=== PATIENT | female | born 1950 | race Caucasian/White ===

== ENCOUNTER → 2016-10-24 | Outpatient (REF) | payer MEDICARE, OTHER ==
[~2016-10-24] MED LIST: ALEN35TA PO; ATIV2TAB PO; BUTACAP78 PO; CENTTAB47 PO; CETI10TA PO; CETI1TAB PO; FISH120012 PO; FISH5CAP PO; GLUC15002 PO; LEVO112T25 PO; LORA2TAB9 PO; MOME50SP; MONT10TA2 PO; OMEP20CA3 PO; SIMV20TA2 PO; ZYRT10CA PO; [UNRECOGNIZED DRUG - CODE] PO
[2016-10-24 12:27] LABS: ALBUMIN/GLOBULIN RATIO 1.48 (1.00-1.93); ALKALINE PHOSPHATASE 43 U/L (45-117); ALT/SGPT 35 U/L (12-78); ANION GAP 6 MEQ/L (8-16); AST/SGOT 32 U/L (15-37); BILIRUBIN,TOTAL 0.3 MG/DL (0.2-1.0); BLOOD UREA NITROGEN 23 MG/DL (7-18); CALCIUM LEVEL 8.8 MG/DL (8.8-10.2); CARBON DIOXIDE LEVEL 27 MEQ/L (21-32); CHLORIDE LEVEL 109 MEQ/L (98-107); CHOLESTEROL LEVEL 196 MG/DL (<200); CREATININE FOR GFR 0.97 MG/DL (0.55-1.02); FREE T4 1.09 NG/DL (0.76-1.46); GLOMERULAR FILTRATION RATE > 60.0 (>45); GLUCOSE, FASTING 93 MG/DL (80-110); POTASSIUM SERUM 4.4 MEQ/L (3.5-5.1); SODIUM LEVEL 142 MEQ/L (136-145); TOTAL PROTEIN 6.7 GM/DL (6.4-8.2); TRIGLYCERIDES LEVEL 47 MG/DL (<150)
[2016-10-24 14:21] LABS: MEAN CORPUSCULAR HEMOGLOBIN 30.6 pg (27.0-33.0); MEAN CORPUSCULAR HGB CONC 33.1 g/dl (32.0-36.5); MEAN CORPUSCULAR VOLUME 92.7 fl (80.0-96.0); PLATELET COUNT, AUTOMATED 152 k/mm3 (150-450); RED CELL DISTRIBUTION WIDTH 12.1 % (11.5-14.5); WHITE BLOOD COUNT 3.1 K/mm3 (4.0-10.0)
[2016-10-24 15:36] LABS: BASOPHILS 1 % (0-4); EOSINOPHILS 4 % (0-5)
== END ==
LOC: M LABDRAW1 11:40
PROVIDERS: ATTEND Emergency Medicine
DX: E78.2 Mixed hyperlipidemia (principal); E03.9 Hypothyroidism, unspecified; R53.83 Other fatigue

== ENCOUNTER → 2016-12-26 | Outpatient (REF) | payer MEDICARE, OTHER ==
[2016-12-26 19:05] LABS: URIC ACID 3.6 MG/DL (2.6-6.0)
[2016-12-29 00:06] LABS: Lyme Disease IgG/IgM Antibodie <0.91 ISR (0.00-0.90); Lyme Disease IgM Ab Quantitati <0.80 index (0.00-0.79)
== END ==
LOC: M LABDRAW1 17:28
PROVIDERS: ATTEND Emergency Medicine
DX: M15.0 Primary generalized (osteo)arthritis (principal)

== ENCOUNTER → 2017-07-18 | Outpatient (CLI) | payer MEDICARE, OTHER, BC | LOC: M WUC 15:37 | DX: M25.551 Pain in right hip (principal) | CPT/HCPCS: 73502 ==

== ENCOUNTER → 2017-10-08 | Outpatient (CLI) | payer MEDICARE, BC, OTHER | LOC: M EKG 14:10 | DX: J47.9 Bronchiectasis, uncomplicated (principal) | CPT/HCPCS: 93005 ==

== ENCOUNTER → 2017-10-17 | Outpatient (REF) | payer MEDICARE, OTHER | LOC: M LABDRWAD 15:26 | DX: J47.9 Bronchiectasis, uncomplicated (principal) | CPT/HCPCS: 87116 ==

== ENCOUNTER → 2018-08-26 | Outpatient (REF) | payer MEDICARE, OTHER ==
[~2018-08-26] MED LIST changes: -ALEN35TA PO; +ALEN35TA37 PO
[2018-08-26 12:04] LABS: BASO % 1.2 % (0.0-1.0); EOS # 0.1 10^3/uL (0.0-0.50); EOS % 3.2 % (0.0-3.0); HEMATOCRIT 35.5 % (36.0-47.0); HEMOGLOBIN 11.6 g/dl (12.0-15.5); LYMPH # 1.4 10^3/uL (1.5-4.5); LYMPH % 41.4 % (24.0-44.0); MEAN CORPUSCULAR HEMOGLOBIN 30.3 pg (27.0-33.0); MEAN CORPUSCULAR HGB CONC 32.7 g/dl (32.0-36.5); MEAN CORPUSCULAR VOLUME 92.7 fl (80.0-96.0); MONO # 0.3 10^3/uL (0.0-0.8); MONO % 9.3 % (0.0-5.0); NEUTROPHILS # 1.6 10^3/uL (1.8-7.7); NEUTROPHILS % 44.9 % (36.0-66.0); PLATELET COUNT, AUTOMATED 176 10^3/uL (150-450); RED BLOOD COUNT 3.83 10^6/uL (4.00-5.40); WHITE BLOOD COUNT 3.5 10^3/uL (4.0-10.0)
[2018-08-26 12:49] LABS: BILIRUBIN,TOTAL 0.3 MG/DL (0.2-1.0); CALCIUM LEVEL 9.3 MG/DL (8.8-10.2); CHOLESTEROL RISK RATIO 2.902 (<5); CREATININE FOR GFR 1.09 MG/DL (0.55-1.30); FREE T4 1.17 NG/DL (0.76-1.46); GLOMERULAR FILTRATION RATE 52.8 (>39); POTASSIUM SERUM 4.4 MEQ/L (3.5-5.1); THYROID STIMULATING HORMONE 2.21 uIU/ML (0.358-3.740); TOTAL PROTEIN 6.8 GM/DL (6.4-8.2)
== END ==
LOC: M LABDRAW1 09:22
PROVIDERS: ATTEND Physician Assistant
DX: E78.2 Mixed hyperlipidemia (principal); E03.9 Hypothyroidism, unspecified; G43.909 Migraine, unspecified, not intractable, without status migrainosus

== ENCOUNTER → 2018-12-12 | Outpatient (REF) | payer MEDICARE, OTHER | LOC: M LAB REF 17:03 | PROVIDERS: ATTEND Physician Assistant | DX: N32.81 Overactive bladder (principal) ==

== ENCOUNTER → 2019-03-05 | Outpatient (REF) | payer MEDICARE, OTHER ==
[~2019-03-05] MED LIST changes: -OMEP20CA3 PO; +OMEP20CA4 PO
[2019-03-05 14:31] LABS: BASO % 1.3 % (0.0-1.0); EOS # 0.1 10^3/uL (0.0-0.50); EOS % 4.6 % (0.0-3.0); HEMATOCRIT 34.5 % (36.0-47.0); HEMOGLOBIN 11.2 g/dl (12.0-15.5); LYMPH # 1.1 10^3/uL (1.5-4.5); MEAN CORPUSCULAR HEMOGLOBIN 30.4 pg (27.0-33.0); MEAN CORPUSCULAR HGB CONC 32.5 g/dl (32.0-36.5); MEAN CORPUSCULAR VOLUME 93.5 fl (80.0-96.0); MONO # 0.4 10^3/uL (0.0-0.8); MONO % 12.1 % (0.0-5.0); NEUTROPHILS # 1.4 10^3/uL (1.8-7.7); PLATELET COUNT, AUTOMATED 166 10^3/uL (150-450); RED BLOOD COUNT 3.69 10^6/uL (4.00-5.40); WHITE BLOOD COUNT 3.1 10^3/uL (4.0-10.0)
[2019-03-05 15:10] LABS: ALBUMIN 4.2 GM/DL (3.2-5.2); BILIRUBIN,TOTAL 0.4 MG/DL (0.2-1.0); CALCIUM LEVEL 9.4 MG/DL (8.8-10.2); CHOLESTEROL RISK RATIO 2.41 (<5); CREATININE FOR GFR 1.01 MG/DL (0.55-1.30); FREE T4 1.2 NG/DL (0.76-1.46); GLOMERULAR FILTRATION RATE 57.5 (>39); POTASSIUM SERUM 4.3 MEQ/L (3.5-5.1); THYROID STIMULATING HORMONE 1.45 uIU/ML (0.358-3.740); TOTAL 25(OH) VITAMIN D 58.5 NG/ML (30.0-100.0); TOTAL PROTEIN 6.8 GM/DL (6.4-8.2)
== END ==
LOC: M LABDRAW1 08:36
PROVIDERS: ATTEND Physician Assistant
DX: Z13.29 Encounter for screening for other suspected endocrine disorder (principal); E78.00 Pure hypercholesterolemia, unspecified

== ENCOUNTER → 2019-06-17 | Outpatient (REF) | payer MEDICARE, OTHER ==
[~2019-06-17] MED LIST changes: -ALEN35TA37 PO; +ALEN35TA6 PO; -SIMV20TA2 PO; +SIMV20TA22 PO
[2019-06-17 11:46] LABS: BASO % 0.6 % (0.0-1.0); EOS # 0.1 10^3/uL (0.0-0.5); HEMATOCRIT 35.1 % (36.0-47.0); HEMOGLOBIN 11.5 g/dl (12.0-15.5); LYMPH # 1.2 10^3/uL (1.5-5.0); LYMPH % 34.6 % (24.0-44.0); MEAN CORPUSCULAR HEMOGLOBIN 30.4 pg (27.0-33.0); MEAN CORPUSCULAR HGB CONC 32.8 g/dl (32.0-36.5); MEAN CORPUSCULAR VOLUME 92.9 fl (80.0-96.0); MONO # 0.4 10^3/uL (0.0-0.8); MONO % 9.9 % (0.0-5.0); NEUTROPHILS # 1.9 10^3/uL (1.5-8.5); NEUTROPHILS % 52.9 % (36.0-66.0); PLATELET COUNT, AUTOMATED 176 10^3/uL (150-450); RED BLOOD COUNT 3.78 10^6/uL (4.00-5.40); WHITE BLOOD COUNT 3.6 10^3/uL (4.0-10.0)
[2019-06-17 11:58] LABS: ALBUMIN 3.9 GM/DL (3.2-5.2); BILIRUBIN,TOTAL 0.3 MG/DL (0.2-1.0); CALCIUM LEVEL 8.7 MG/DL (8.8-10.2); CREATININE FOR GFR 1.06 MG/DL (0.55-1.30); GLOMERULAR FILTRATION RATE 54.4 (>39); POTASSIUM SERUM 4.3 MEQ/L (3.5-5.1)
[2019-06-17 12:02] LABS: FOLATE 21.8 NG/ML
[2019-06-17 13:30] LABS: HEMOGLOBIN A1c 5.7 %
== END ==
LOC: M LABDRAW1 11:02
PROVIDERS: ATTEND Physician Assistant
DX: D64.9 Anemia, unspecified (principal); R73.03 Prediabetes

== ENCOUNTER 2020-04-08 08:13 | Emergency (ER) | payer MEDICARE, BC, OTHER ==
[~2020-04-08] VITALS: Ht 162.6 cm; Wt 60.0 kg
[~2020-04-08 08:13] MED LIST changes: +ALEN35TA54 PO; -ALEN35TA6 PO; +LORA2TAB14 PO; -LORA2TAB9 PO; -MONT10TA2 PO; +MONT10TA4 PO; +OMEP1CAP73 PO; -OMEP20CA4 PO
[2020-04-08] MEDS ORDERED: PANT40TA29 PO (08:25)
[2020-04-08] MEDS ORDERED: LEVO112T2 PO (08:25)
[2020-04-08] MEDS ORDERED: LORA2TAB14 PO (08:25)
[2020-04-08] MEDS ORDERED: NS 1,000 ML IV ONE (08:45)
[2020-04-08] MEDS ORDERED: ISOVUE-370 76% 100ML VIAL As Ordered ONE (09:06)
[2020-04-08 09:42] LABS: ALBUMIN 4.4 GM/DL (3.2-5.2); ALT/SGPT 32 U/L (12-78); BILIRUBIN,DIRECT < 0.1 MG/DL (0.0-0.2); BILIRUBIN,TOTAL 0.4 MG/DL (0.2-1.0); LIPASE 130 U/L (73-393); TOTAL PROTEIN 7.4 GM/DL (6.4-8.2)
--- NOTE | 2020-04-08 09:51 | REPVR ---
PROCEDURE INFORMATION: Exam: CT Abdomen And Pelvis With Contrast Exam date and time: 04/08/2020 8:32 AM Age: 70 years old Clinical indication: Other: Diarrhea; Abdominal pain; Additional info: Abdominal pain/diarrhea TECHNIQUE: Imaging protocol: Computed tomography of the abdomen and pelvis with intravenous contrast. Radiation optimization: All CT scans at this facility use at least one of these dose optimization techniques: automated exposure control; mA and/or kV adjustment per patient size (includes targeted exams where dose is matched to clinical indication); or iterative reconstruction. Contrast material: ISOVUE 370; Contrast volume: 100 ml; Contrast route: INTRAVENOUS (IV); COMPARISON: None FINDINGS: Lungs: Interstitial prominence, mild airspace disease, and bronchiectasis. Liver: No focal hepatic mass. Gallbladder and bile ducts: No cholelithiasis or biliary ductal dilatation. Pancreas: Borderline pancreatic ductal dilatation, without focal mass. Spleen: No splenomegaly. Adrenals: Unremarkable adrenals. Kidneys and ureters: Normal renal morphology. No hydronephrosis. Stomach and bowel: Questionable wall thickening in the nondistended stomach. Mild small bowel dilatation without a transition zone. Colonic wall thickening, in a pattern of colitis. Appendix: Appendix not visualized. Intraperitoneal space: No significant free fluid. Vasculature: Vascular calcification. Normal caliber of the abdominal aorta. Lymph nodes: No pathologically enlarged lymph nodes. Bladder: Normal bladder morphology. Reproductive: Status post hysterectomy. Bones/joints: Transitional vertebra at the lumbosacral junction. Schmorl's nodes. Mild degenerative change. IMPRESSION: 1. Colonic wall thickening, in a pattern of colitis. 2. Additional findings as described above. Electronically signed by: Yogi Toro On 04/08/2020 09:50:58 AM
[2020-04-08 09:55] LABS: BASO % 0.1 % (0.0-1.0); HEMOGLOBIN 9.8 g/dl (12.0-15.5); LYMPH # 0.6 10^3/uL (1.5-5.0); LYMPH % 6.3 % (24.0-44.0); MEAN CORPUSCULAR HEMOGLOBIN 30.9 pg (27.0-33.0); MEAN CORPUSCULAR HGB CONC 32.7 g/dl (32.0-36.5); MEAN CORPUSCULAR VOLUME 94.6 fl (80.0-96.0); MONO # 0.3 10^3/uL (0.0-0.8); MONO % 3.6 % (0.0-5.0); NEUTROPHILS # 7.8 10^3/uL (1.5-8.5); NEUTROPHILS % 89.5 % (36.0-66.0); PLATELET COUNT, AUTOMATED 124 10^3/uL (150-450); RED BLOOD COUNT 3.17 10^6/uL (4.00-5.40); WHITE BLOOD COUNT 8.7 10^3/uL (4.0-10.0)
[2020-04-08] MEDS ORDERED: CIPROFLOXACIN 500MG TABLET PO ONE (11:45)
[2020-04-08] MEDS ORDERED: LOPERAMIDE 2 MG CAPLET PO ONE (11:45)
[2020-04-08] MEDS ORDERED: metroNIDAZOLE (FLAGYL) 500MG TABLET PO ONE (11:45)
[2020-04-08] MEDS ORDERED: METR-265 PO (13:43)
[2020-04-08] MEDS ORDERED: CIPR-249 PO (13:43)
[2020-04-08] MEDS ORDERED: ACETAMINOPHEN TAB 650MG DOSE (2X325MG) As Ordered ONE (14:00)
[2020-04-08] MEDS ORDERED: ACETAMINOPHEN TAB 650MG DOSE (2X325MG) PO ONE (14:00)
[2020-04-08 14:05] VITALS: BP 130/65
--- NOTE | 2020-04-09 09:33 | ED PDOC ---
Post-Departure Follow-Up radiology report faxed to Brenna Hernandez MD Apr 09, 2020 09:33
== END 2020-04-08 14:10 | disposition home or self-care (01) ==
LOC: M ED 08:13 → EDBD 08:13 → M ED 14:10
DX: K52.9 Noninfective gastroenteritis and colitis, unspecified (principal); K21.9 Gastro-esophageal reflux disease without esophagitis; Z79.899 Other long term (current) drug therapy; Z87.891 Personal history of nicotine dependence
CPT/HCPCS: 74177; 80047; 80076; 83605; 83690; 85025; 87507; 93041; 96360; 99284; Q9967

== ENCOUNTER → 2020-09-03 | Outpatient (CLI) | payer MEDICARE, BC, OTHER ==
[~2020-09-03] MED LIST changes: +CIPR-249 PO; +LEVO112T2 PO; +METR-265 PO; +MONT10TA10 PO; -MONT10TA4 PO; +PANT40TA29 PO
[2020-09-03 12:39] LABS: HEMATOCRIT 35.6 % (36.0-47.0); HEMOGLOBIN 11.1 g/dl (12.0-15.5); MEAN CORPUSCULAR HEMOGLOBIN 29.8 pg (27.0-33.0); MEAN CORPUSCULAR HGB CONC 31.2 g/dl (32.0-36.5); MEAN CORPUSCULAR VOLUME 95.7 fl (80.0-96.0); PLATELET COUNT, AUTOMATED 163 10^3/uL (150-450); RED BLOOD COUNT 3.72 10^6/uL (4.00-5.40); WHITE BLOOD COUNT 3.3 10^3/uL (4.0-10.0)
[2020-09-03 13:17] LABS: ALBUMIN 4.2 GM/DL (3.2-5.2); BILIRUBIN,TOTAL 0.3 MG/DL (0.2-1.0); CALCIUM LEVEL 9.1 MG/DL (8.8-10.2); CHOLESTEROL RISK RATIO 3.157 (<5); CREATININE FOR GFR 1.12 MG/DL (0.55-1.30); GLOMERULAR FILTRATION RATE 50.9 (>39); POTASSIUM SERUM 4.2 MEQ/L (3.5-5.1); THYROID STIMULATING HORMONE 1.8 uIU/ML (0.358-3.740)
== END ==
LOC: M WUC 09:07
PROVIDERS: ATTEND Physician Assistant
DX: E78.2 Mixed hyperlipidemia (principal); J45.40 Moderate persistent asthma, uncomplicated; E03.9 Hypothyroidism, unspecified; J30.89 Other allergic rhinitis

== ENCOUNTER → 2020-10-17 | Outpatient (CLI) | payer MEDICARE, BC, OTHER ==
[~2020-10-17] MED LIST changes: +ALBU83IN INH; +ATIV1TAB7 PO; +CYAN500T14 PO; +KP F1200 PO; +VITMTA PO
== END ==
LOC: M LABSMTC 08:17
PROVIDERS: ATTEND Anesthesiology
DX: Z01.812 Encounter for preprocedural laboratory examination (principal)

== ENCOUNTER 2020-10-22 11:45 | Day surgery (SDC) | payer MEDICARE, BC, OTHER ==
[~2020-10-22] VITALS: Ht 165.1 cm; Wt 59.4 kg
[~2020-10-22 11:45] MED LIST changes: +LIDOCAINE 2% 100MG/5ML SDV (FOR ANES.) As Ordered ONE; +NS 1,000 ML IV ONE; +propofoL 200 MG/20 ML VIAL As Ordered ONE
--- NOTE | 2020-10-22 14:11 | ROOR ---
Patient Name: Haydee Sher Procedure Date: 10/22/2020 1:59 PM Date of : 1950 Age: 70 Room: [facility] [place] Gender: Female Note Status: Finalized Procedure: Upper GI endoscopy Indications: Abnormal CT of the GI tract Providers: Phuc GAN MD Referring MD: Graham Peralta MD Requesting Provider: Medicines: Monitored Anesthesia Care Complications: No immediate complications. Procedure: Pre-Anesthesia Assessment: - The heart rate, respiratory rate, oxygen saturations, blood pressure, adequacy of pulmonary ventilation, and response to care were monitored throughout the procedure. The Endoscope was introduced through the mouth, and advanced to the second part of duodenum. The upper GI endoscopy was accomplished without difficulty. The patient tolerated the procedure well. Findings: Small Hiatal Hernia. The esophagus was normal. The stomach was normal. The examined duodenum was normal. Impression: - Small Hiatal Hernia. - Normal esophagus. - Normal stomach. - Normal examined duodenum. - No specimens collected. Recommendation: - Observe patient's clinical course. Procedure Code(s): --- Professional --- 28867, Esophagogastroduodenoscopy, flexible, transoral; diagnostic, including collection of specimen(s) by brushing or washing, when performed (separate procedure) Diagnosis Code(s): --- Professional --- R93.3, Abnormal findings on diagnostic imaging of other parts of digestive tract CPT copyright 2019 [employer]. All rights reserved. The codes documented in this report are preliminary and upon braille coder review may be revised to meet current compliance requirements. Phuc Gan MD Phuc GAN MD 10/22/2020 2:10:58 PM Electronically signed by Phuc GAN MD Number of Addenda: 0 Note Initiated On: 10/22/2020 1:59 PM Estimated Blood Loss: Estimated blood loss: none.
--- NOTE | 2020-10-22 14:43 | ROOR ---
Patient Name: Haydee Sher Procedure Date: 10/22/2020 2:00 PM Date of : 1950 Age: 70 Room: [facility] Gender: Female Note Status: Finalized Procedure: Colonoscopy Indications: Abnormal CT of the GI tract Providers: Phuc GAN MD Referring MD: Graham Peralta MD Requesting Provider: Medicines: Monitored Anesthesia Care Complications: No immediate complications. Procedure: Pre-Anesthesia Assessment: - The heart rate, respiratory rate, oxygen saturations, blood pressure, adequacy of pulmonary ventilation, and response to care were monitored throughout the procedure. The Colonoscope was introduced through the anus and advanced to the terminal ileum, with identification of the appendiceal orifice and IC valve. The colonoscopy was performed with difficulty due to a tortuous colon. The patient tolerated the procedure well. The quality of the bowel preparation was good. Findings: The perianal and digital rectal examinations were normal. The colon (entire examined portion) was significantly tortuous. Mild sigmoid diverticulosis and small internal hemorrhoids. The exam was otherwise without abnormality on direct and retroflexion views. Biopsies for histology were taken with a cold forceps for evaluation of microscopic colitis. Impression: - Tortuous colon. - Mild sigmoid diverticulosis and small internal hemorrhoids. - The examination was otherwise normal on direct and retroflexion views. - Biopsies were taken with a cold forceps for evaluation of microscopic colitis. Recommendation: - Telephone endoscopist for pathology results in 2 weeks. - Colon is very tortuous and spastic with deep recesses. For recurrent symptoms, would consider BE, CT colography or repeat coloscopy if necessary) Procedure Code(s): --- Professional --- 87318, Colonoscopy, flexible; with biopsy, single or multiple Diagnosis Code(s): --- Professional --- Q43.8, Other specified congenital malformations of intestine R93.3, Abnormal findings on diagnostic imaging of other parts of digestive tract CPT copyright 2019 [employer]. All rights reserved. The codes documented in this report are preliminary and upon automatic brine mixer operator review may be revised to meet current compliance requirements. Phuc Gan MD Phuc GAN MD 10/22/2020 2:43:37 PM Electronically signed by Phuc GAN MD Number of Addenda: 0 Note Initiated On: 10/22/2020 2:00 PM Estimated Blood Loss: Estimated blood loss: none.
[2020-10-22 14:55] VITALS: BP 127/58
== END 2020-10-22 15:10 | disposition home or self-care (01) ==
LOC: M OPP 11:45
PROVIDERS: ATTEND Internal Medicine Gastroenterology
DX: Q43.8 Other specified congenital malformations of intestine (principal); K63.89 Other specified diseases of intestine; R93.3 Abnormal findings on diagnostic imaging of other parts of digestive tract; K44.9 Diaphragmatic hernia without obstruction or gangrene; Z79.899 Other long term (current) drug therapy; Z88.8 Allergy status to other drugs, medicaments and biological substances

== ENCOUNTER → 2020-12-09 | Outpatient (REF) | payer MEDICARE, OTHER ==
[~2020-12-09] MED LIST changes: -LIDOCAINE 2% 100MG/5ML SDV (FOR ANES.) As Ordered ONE; -NS 1,000 ML IV ONE; -propofoL 200 MG/20 ML VIAL As Ordered ONE
== END ==
LOC: M SFHCADAM 13:06
PROVIDERS: ATTEND Physician Assistant
DX: M25.50 Pain in unspecified joint (principal)

== ENCOUNTER → 2020-12-09 | Outpatient (CLI) | payer MEDICARE, OTHER ==
--- NOTE | 2020-12-09 15:14 | REP ---
INDICATION: HIP PAIN. COMPARISON: Right hip 07/18/2017. TECHNIQUE: AP view pelvis, AP and frogleg views bilateral hips. FINDINGS: There is no acute fracture or dislocation. Mild arthritic changes seen symmetrically at the hip joints with very mild joint space narrowing and subchondral sclerosis. The sacroiliac joints appear unremarkable. Multiple phleboliths are seen in the pelvis. No other abnormalities are seen. 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 <Electronically signed by Mandeep Sibley > 12/09/20 [id number]
== END ==
LOC: M ADAMS 13:08
PROVIDERS: ATTEND Family Medicine
DX: M16.0 Bilateral primary osteoarthritis of hip (principal); M25.50 Pain in unspecified joint; M25.59 Pain in other specified joint

== ENCOUNTER → 2021-04-15 | Outpatient (REF) | payer MEDICARE, OTHER ==
[~2021-04-15] MED LIST changes: -ALEN35TA54 PO; +ALEN35TA56 PO
[2021-04-16 21:06] LABS: ANA (HEP2) Positive (.); SSA SJOGRENS A <0.2 AI (0.0-0.9); SSB SJOGRENS B <0.2 AI (0.0-0.9)
== END ==
LOC: M SFHCRHEU 10:01
PROVIDERS: ATTEND Internal Medicine
DX: H04.123 Dry eye syndrome of bilateral lacrimal glands (principal); R76.8 Other specified abnormal immunological findings in serum
CPT/HCPCS: 36415; 86038; 86235; G0463

== ENCOUNTER → 2021-04-29 | Outpatient (CLI) | payer MEDICARE, OTHER ==
[2021-04-29 13:51] LABS: HEMATOCRIT 36.8 % (36.0-47.0); HEMOGLOBIN 11.7 g/dl (12.0-15.5); MEAN CORPUSCULAR HEMOGLOBIN 30.2 pg (27.0-33.0); MEAN CORPUSCULAR HGB CONC 31.8 g/dl (32.0-36.5); MEAN CORPUSCULAR VOLUME 95.1 fl (80.0-96.0); PLATELET COUNT, AUTOMATED 188 10^3/uL (150-450); RED BLOOD COUNT 3.87 10^6/uL (4.00-5.40); WHITE BLOOD COUNT 3.3 10^3/uL (4.0-10.0)
[2021-04-29 16:06] LABS: CHOLESTEROL RISK RATIO 2.189 (<5); PERCENT SATURATION 40.3 % (13.2-45.0); THYROID STIMULATING HORMONE 2.89 uIU/ML (0.358-3.740)
== END ==
LOC: M PLALAB 11:28
PROVIDERS: ATTEND Physician Assistant
DX: D64.9 Anemia, unspecified (principal); E03.9 Hypothyroidism, unspecified; E78.2 Mixed hyperlipidemia

== ENCOUNTER → 2021-07-22 | Outpatient (CLI) | payer MEDICARE, BC, OTHER ==
--- NOTE | 2021-07-22 12:09 | REP ---
INDICATION: COUGH H/O PNEUMONIA COMPARISON: 07/27/2015 TECHNIQUE: PA and lateral. FINDINGS: The mediastinum and cardiac silhouette are normal. The lung alcaraz are clear and without acute consolidation, effusion, or pneumothorax. The skeletal structures are intact and normal. IMPRESSION: No acute cardiopulmonary process. <Electronically signed by Kole Blair > 07/22/21 [id number]
== END ==
LOC: M RAD 11:27
PROVIDERS: ATTEND Physician Assistant Medical
DX: R05.9 Cough, unspecified (principal)

== ENCOUNTER → 2022-01-18 | Outpatient (CLI) | payer MEDICARE, BC, OTHER ==
[~2022-01-18] MED LIST changes: +ALBU2.5V10 INH; -ALBU83IN INH; -CETI1TAB PO; +CETI1TAB61 PO; -MOME50SP; -MONT10TA10 PO; +MONT10TA97 PO; +NASO50SP3
[2022-01-18 13:58] LABS: BASO % 0.5 % (0.0-1.0); EOS # 0.1 10^3/uL (0.0-0.5); EOS % 0.8 % (0.0-3.0); HEMATOCRIT 37.2 % (36.0-47.0); HEMOGLOBIN 12.1 g/dl (12.0-15.5); LYMPH # 1.2 10^3/uL (1.5-5.0); LYMPH % 19.8 % (24.0-44.0); MEAN CORPUSCULAR HGB CONC 32.5 g/dl (32.0-36.5); MEAN CORPUSCULAR VOLUME 95.4 fl (80.0-96.0); MONO # 0.4 10^3/uL (0.0-0.8); MONO % 5.8 % (2.0-8.0); NEUTROPHILS # 4.4 10^3/uL (1.5-8.5); NEUTROPHILS % 72.4 % (36.0-66.0); PLATELET COUNT, AUTOMATED 192 10^3/uL (150-450)
[2022-01-18 14:10] LABS: BILIRUBIN,TOTAL 0.3 MG/DL (0.2-1.0); CALCIUM LEVEL 10.2 MG/DL (8.8-10.2); CREATININE FOR GFR 1.11 MG/DL (0.55-1.30); FREE T4 1.32 NG/DL (0.76-1.46); GLOMERULAR FILTRATION RATE 51.3 (>39); POTASSIUM SERUM 4.4 MEQ/L (3.5-5.1); THYROID STIMULATING HORMONE 0.395 uIU/ML (0.358-3.740)
== END ==
LOC: M PLALAB 10:25
PROVIDERS: ATTEND Physician Assistant
DX: M32.9 Systemic lupus erythematosus, unspecified (principal); F41.9 Anxiety disorder, unspecified

== ENCOUNTER → 2022-09-25 | Outpatient (REF) | payer MEDICARE, OTHER ==
[2022-09-25 16:25] LABS: BASO % 0.9 % (0.0-1.0); EOS # 0.1 10^3/uL (0.0-0.5); EOS % 2.4 % (0.0-3.0); HEMATOCRIT 36.9 % (36.0-47.0); HEMOGLOBIN 11.7 g/dl (12.0-15.5); LYMPH # 1.7 10^3/uL (1.5-5.0); LYMPH % 36.3 % (24.0-44.0); MEAN CORPUSCULAR HEMOGLOBIN 30.2 pg (27.0-33.0); MEAN CORPUSCULAR HGB CONC 31.7 g/dl (32.0-36.5); MEAN CORPUSCULAR VOLUME 95.1 fl (80.0-96.0); MONO # 0.5 10^3/uL (0.0-0.8); MONO % 9.6 % (2.0-8.0); NEUTROPHILS # 2.4 10^3/uL (1.5-8.5); NEUTROPHILS % 50.6 % (36.0-66.0); PLATELET COUNT, AUTOMATED 165 10^3/uL (150-450); RED BLOOD COUNT 3.88 10^6/uL (4.00-5.40); WHITE BLOOD COUNT 4.7 10^3/uL (4.0-10.0)
[2022-09-25 16:51] LABS: ALBUMIN 4.2 G/DL (3.2-5.2); BILIRUBIN,TOTAL 0.3 MG/DL (0.3-1.2); CALCIUM LEVEL 9.4 MG/DL (8.3-10.6); CHOLESTEROL RISK RATIO 2.43 (<5); CREATININE FOR GFR 0.97 MG/DL (0.55-1.30); GLOMERULAR FILTRATION RATE 59.8 (>39); HDL CHOLESTEROL 73.5 MG/DL (>40); LDL CHOLESTEROL 92.5 MG/DL (<100); POTASSIUM SERUM 5.2 MMOL/L (3.5-5.1); TOTAL PROTEIN 6.8 G/DL (5.7-8.2)
[2022-09-25 16:53] LABS: THYROID STIMULATING HORMONE 0.378 uIU/ML (0.55-4.78)
== END ==
LOC: M SFHCADAM 12:56
PROVIDERS: ATTEND Family Medicine
DX: Z00.00 Encounter for general adult medical examination without abnormal findings (principal); Z79.899 Other long term (current) drug therapy

== ENCOUNTER → 2022-12-13 | Outpatient (CLI) | payer MEDICARE, OTHER | LOC: M PLALAB 10:51 → M PLAIMG 10:51 | PROVIDERS: ATTEND Family Medicine | DX: M54.50 Low back pain, unspecified (principal) ==

== ENCOUNTER → 2022-12-22 | Outpatient (CLI) | payer MEDICARE, BC, OTHER | LOC: M WHC 12:53 | PROVIDERS: ATTEND Family Medicine | DX: Z12.31 Encounter for screening mammogram for malignant neoplasm of breast (principal) ==

== ENCOUNTER → 2023-01-05 | Outpatient (CLI) | payer MEDICARE, BC, OTHER ==
[2023-01-05 13:27] LABS: C REACTIVE PROTEIN QUANTITATIV < 0.40 MG/DL (<1.0)
[2023-01-05 13:29] LABS: RHEUMATOID FACTOR QUANT < 3.5 IU/ML (<14)
[2023-01-06 12:09] LABS: ANTINUCLEAR ANTIBODIES DIRECT Negative (Negative)
== END ==
LOC: M PLALAB 10:18
PROVIDERS: ATTEND Orthopaedic Surgery
DX: M54.50 Low back pain, unspecified (principal)

== ENCOUNTER → 2023-02-07 | Outpatient (CLI) | payer MEDICARE, BC, OTHER | LOC: M PLAIMG 12:47 | PROVIDERS: ATTEND Internal Medicine Pulmonary Disease | DX: J47.9 Bronchiectasis, uncomplicated (principal) ==

== ENCOUNTER → 2023-05-30 | Outpatient (REF) | payer MEDICARE, OTHER ==
[2023-05-30 17:16] LABS: BASO % 0.7 % (0.0-1.0); EOS # 0.1 10^3/uL (0.0-0.5); EOS % 2.7 % (0.0-3.0); HEMATOCRIT 34.3 % (36.0-47.0); HEMOGLOBIN 11.2 g/dl (12.0-15.5); LYMPH # 1.5 10^3/uL (1.5-5.0); LYMPH % 35.7 % (24.0-44.0); MEAN CORPUSCULAR HGB CONC 32.7 g/dl (32.0-36.5); MONO # 0.4 10^3/uL (0.0-0.8); MONO % 10.4 % (2.0-8.0); NEUTROPHILS # 2.1 10^3/uL (1.5-8.5); NEUTROPHILS % 50.3 % (36.0-66.0); PLATELET COUNT, AUTOMATED 176 10^3/uL (150-450); RED BLOOD COUNT 3.61 10^6/uL (4.00-5.40); WHITE BLOOD COUNT 4.1 10^3/uL (4.0-10.0)
[2023-05-30 17:52] LABS: BILIRUBIN,TOTAL 0.4 MG/DL (0.3-1.2); CALCIUM LEVEL 9.3 MG/DL (8.3-10.6); CREATININE FOR GFR 1.01 MG/DL (0.55-1.30); GLOMERULAR FILTRATION RATE 56.9 (>39); MAGNESIUM LEVEL 2.1 MG/DL (1.8-2.4); POTASSIUM SERUM 4.9 MMOL/L (3.5-5.1); TOTAL PROTEIN 6.8 G/DL (5.7-8.2)
[2023-05-30 17:56] LABS: THYROID STIMULATING HORMONE 0.309 uIU/ML (0.55-4.78)
== END ==
LOC: M SFHCADAM 13:19
PROVIDERS: ATTEND Family Medicine
DX: R00.2 Palpitations (principal); R42 Dizziness and giddiness; R04.0 Epistaxis

== ENCOUNTER → 2023-07-24 | Outpatient (REF) | payer MEDICARE, BC, OTHER ==
[2023-07-24 17:27] LABS: THYROID STIMULATING HORMONE 6.477 uIU/ML (0.55-4.78)
[2023-07-24 17:28] LABS: FREE T4 1.13 NG/DL (0.89-1.76)
== END ==
LOC: M SFHCADAM 13:14
PROVIDERS: ATTEND Family Medicine
DX: E03.9 Hypothyroidism, unspecified (principal)

== ENCOUNTER → 2023-09-13 | Outpatient (CLI) | payer MEDICARE, BC, OTHER | LOC: M WUC 15:16 | PROVIDERS: ATTEND Nurse Practitioner Family | DX: R05.9 Cough, unspecified (principal) ==

== ENCOUNTER → 2023-11-07 | Outpatient (CLI) | payer MEDICARE, BC | LOC: M ADAMS 14:16 | PROVIDERS: ATTEND Family Medicine | DX: M54.50 Low back pain, unspecified (principal) ==

== ENCOUNTER → 2023-11-07 | Outpatient (REF) | payer MEDICARE, BC ==
[2023-11-07 19:13] LABS: ALBUMIN 3.7 G/DL (3.2-5.2); BILIRUBIN,TOTAL 0.3 MG/DL (0.3-1.2); CALCIUM LEVEL 9.1 MG/DL (8.3-10.6); CREATININE FOR GFR 1.04 MG/DL (0.55-1.30); POTASSIUM SERUM 5.6 MMOL/L (3.5-5.1); TOTAL PROTEIN 6.5 G/DL (5.7-8.2)
== END ==
LOC: M SFHCADAM 14:05
PROVIDERS: ATTEND Family Medicine
DX: Z79.899 Other long term (current) drug therapy (principal); W30.9XXA Contact with unspecified agricultural machinery, initial encounter

== ENCOUNTER → 2023-11-15 | Outpatient (REF) | payer MEDICARE, BC ==
[2023-11-15 18:47] LABS: CALCIUM LEVEL 9.8 MG/DL (8.3-10.6); CREATININE FOR GFR 1.09 MG/DL (0.55-1.30); FREE T4 1.42 NG/DL (0.89-1.76); GLOMERULAR FILTRATION RATE 52.1 (>39); POTASSIUM SERUM 5.2 MMOL/L (3.5-5.1); THYROID STIMULATING HORMONE 0.97 uIU/ML (0.55-4.78)
== END ==
LOC: M SFHCADAM 11:20
PROVIDERS: ATTEND Family Medicine
DX: R74.8 Abnormal levels of other serum enzymes (principal); E03.9 Hypothyroidism, unspecified; E87.6 Hypokalemia

== ENCOUNTER → 2024-06-11 | Outpatient (CLI) | payer MEDICARE, BC | LOC: M WHC 07:53 | PROVIDERS: ATTEND Family Medicine | DX: N64.4 Mastodynia (principal); Z12.31 Encounter for screening mammogram for malignant neoplasm of breast | CPT/HCPCS: 77066; G0279 ==

== ENCOUNTER → 2025-01-27 | Outpatient (CLI) | payer MEDICARE, BC ==
[2025-01-27 15:17] LABS: CHOLESTEROL LEVEL 182.0 MG/DL (<200); CHOLESTEROL RISK RATIO 2.52 (<5); LDL CHOLESTEROL 95.8 MG/DL (<100); NON-HDL-C 110.0 MG/DL; TRIGLYCERIDES LEVEL 71.0 MG/DL (<150)
== END ==
LOC: M WUC 09:26
PROVIDERS: ATTEND Family Medicine
DX: E78.2 Mixed hyperlipidemia (principal)

== ENCOUNTER → 2025-06-15 | Outpatient (REF) | payer MEDICARE, BC ==
[2025-06-15 17:54] LABS: BASO # 0.0 10^3/uL (0.0-0.2); BASO % 0.4 % (0.0-1.0); EOS # 0.1 10^3/uL (0.0-0.5); EOS % 1.5 % (0.0-3.0); LYMPH # 1.6 10^3/uL (1.5-5.0); LYMPH % 30.0 % (24.0-44.0); MONO # 0.5 10^3/uL (0.0-0.8); MONO % 9.5 % (2.0-8.0); NEUTROPHILS # 3.1 10^3/uL (1.5-8.5); NEUTROPHILS % 58.4 % (36.0-66.0); PLATELET COUNT, AUTOMATED 158 10^3/uL (150-450)
[2025-06-15 18:19] LABS: ALT/SGPT 23.0 U/L (7.0-40); AST/SGOT 34.0 U/L (<34); CALCIUM LEVEL 9.8 MG/DL (8.3-10.6); CARBON DIOXIDE LEVEL 29.0 MMOL/L (20-31); CHLORIDE LEVEL 102.0 MMOL/L (98-107); CREATININE FOR GFR 1.15 MG/DL (0.55-1.30); GLOMERULAR FILTRATION RATE 49.1 (>39); POTASSIUM SERUM 5.2 MMOL/L (3.5-5.1); SODIUM LEVEL 138.0 MMOL/L (136-145)
== END ==
LOC: M SFHCADAM 14:36
PROVIDERS: ATTEND Family Medicine
DX: R41.89 Other symptoms and signs involving cognitive functions and awareness (principal); R35.0 Frequency of micturition; Z79.899 Other long term (current) drug therapy

== ENCOUNTER → 2025-06-24 | Outpatient (REF) | payer MEDICARE, BC ==
[2025-06-24 18:51] LABS: IRON (FE) 83 UG/DL (50-170); PERCENT SATURATION 26.9 % (13.2-45.0)
== END ==
LOC: M SFHCADAM 13:01
PROVIDERS: ATTEND Family Medicine
DX: D64.9 Anemia, unspecified (principal)

== ENCOUNTER → 2025-07-14 | Outpatient (REF) | payer MEDICARE, BC ==
[2025-07-14 15:01] LABS: APPEARANCE, URINE CLEAR (CLEAR); BACTERIA, URINE AUTO NEGATIVE (NEGATIVE); BILIRUBIN, URINE AUTO NEGATIVE (NEGATIVE); BLOOD, URINE BLOOD NEGATIVE (NEGATIVE); GLUCOSE, URINE (UA) AUTO NEGATIVE (NEGATIVE); KETONE, URINE AUTO NEGATIVE (NEGATIVE); LEUKOCYTE ESTERASE, URINE AUTO NEGATIVE (NEGATIVE); NITRITE, URINE AUTO NEGATIVE (NEGATIVE); PROTEIN, URINE AUTO NEGATIVE (NEGATIVE); RBC, URINE AUTO 0 /HPF (0-3); SPECIFIC GRAVITY URINE AUTO 1.006 (1.002-1.035); SQUAMOUS EPITHELIAL CELL UR AU 0 /HPF (0-6); UROBILINOGEN, URINE AUTO 0.2 mg/dL (0.0-2.0); WBC, URINE AUTO 0 /HPF (0-3)
== END ==
LOC: M SFHCADAM 14:39
PROVIDERS: ATTEND Family Medicine
DX: R30.0 Dysuria (principal)